=== PATIENT | male | born 1965 ===

== ENCOUNTER 2024-12-07 08:59 | Emergency (ER) | payer BC ==
[2024-12-07 09:52] LABS: BASOPHILS PERCENT AUTO 0.4 % (0.0-1.0); EOSINOPHILS PERCENT AUTO 0.4 % (0.0-6.0); HEMATOCRIT 41.2 % (42.0-52.0); HEMOGLOBIN 14.3 gm/dl (14.0-18.0); IMMATURE GRAN ABSOLUTE AUTO 0.03 K/mm3 (0.00-0.05); IMMATURE GRAN PERCENT AUTO 0.4 % (0.0-0.4); LYMPHOCYTES ABSOLUTE AUTO 0.9 K/mm3 (1.0-4.8); LYMPHOCYTES PERCENT AUTO 12.3 % (24.0-44.0); MEAN CORPUSCULAR HEMOGLOBIN 30.3 pg (28.0-32.0); MEAN CORPUSCULAR HGB CONC 34.7 g/dl (32.0-36.0); MEAN CORPUSCULAR VOLUME 87.3 fl (83.0-99.0); MEAN PLATELET VOLUME 10.5 fl (9.4-12.4); MONOCYTES ABSOLUTE AUTO 0.7 K/mm3 (0.0-0.8); MONOCYTES PERCENT AUTO 9.8 % (0.0-8.0); NEUTROPHILS ABSOLUTE AUTO 5.7 K/mm3 (1.8-7.7); NEUTROPHILS PERCENT AUTO 76.7 % (41.0-71.0); PLATELET COUNT,PLT 160 K/mm3 (150-400); RED BLOOD CELL COUNT 4.72 M/mm3 (4.52-5.90); WHITE BLOOD CELL COUNT,WBC 7.37 K/mm3 (3.9-11.3)
[2024-12-07] MEDS: Sodium Chloride 0.9% 1,000 ML IV ONE (10:27)
[2024-12-07 10:30] LABS: ALBUMIN 3.4 g/dl (3.4-5.0); ANION GAP 14.2 (5-15); BILIRUBIN TOTAL 0.7 mg/dL (0.2-1.0); BUN/CREATININE RATIO 11.8 (14-18); CALCIUM 8.8 mg/dL (8.5-10.1); CREATININE 1.1 mg/dL (0.7-1.3); EST CRCL DRUG DOSING (CG) 70.52 mL/min; LACTIC ACID 0.8 mmol/L (0.4-2.0); MAGNESIUM 1.7 mg/dL (1.8-2.4); POTASSIUM,K 3.2 mEq/L (3.5-5.1); PROTEIN TOTAL,TP 6.8 g/dl (6.4-8.2)
[2024-12-07] MEDS: Acetaminophen 325 MG Tab PO ONE (11:46)
[2024-12-07] MEDS: Magnesium Sulfate/Water Premix 2 GM in Premix Bag 1 BAG IV ONE (11:47)
[2024-12-07] MEDS: Potassium Chloride 20 MEQ Tab.ER PO ONE (11:53)
[2024-12-07 15:16] LABS: ANION GAP 13.8 (5-15); CALCIUM 8.4 mg/dL (8.5-10.1); CREATININE 1.1 mg/dL (0.7-1.3); EST CRCL DRUG DOSING (CG) 70.52 mL/min; MAGNESIUM 2.1 mg/dL (1.8-2.4); POTASSIUM,K 3.8 mEq/L (3.5-5.1)
== END 2024-12-07 16:44 | disposition home or self-care (01) ==
LOC: JD.ED 08:59
DX: U07.1 COVID-19 (principal); E11.9 Type 2 diabetes mellitus without complications; Z79.84 Long term (current) use of oral hypoglycemic drugs; Z79.899 Other long term (current) drug therapy
CPT/HCPCS: 36415; 71045; 80048; 80053; 83605; 83735; 83880; 84484; 85025; 85379; 87428; 96361; 96365; 96366; 99285; A9270; J3475; J7030

== ENCOUNTER 2025-05-18 08:05 | Day surgery (SDC) | payer BC ==
[~2025-05-18 08:05] MED LIST: Sodium Chloride 0.9% 10 ML Syringe FLUSH PRN; Sodium Chloride 0.9% 10 ML Syringe FLUSH SCH
[2025-05-18] MEDS: Lactated Ringers 1,000 ML IV SCH (08:35)
[2025-05-18] MEDS ORDERED: Propofol 200 MG/20 ML SDV ONE ×2 (10:00→10:18)
[2025-05-18] MEDS ORDERED: Lactated Ringers 1,000 ML ONE (10:22)
== END 2025-05-18 11:35 | disposition home or self-care (01) ==
LOC: JD.SDS 08:05
PROVIDERS: ATTEND Surgery
DX: K62.5 Hemorrhage of anus and rectum (principal); I10 Essential (primary) hypertension; E11.9 Type 2 diabetes mellitus without complications; Z86.16 Personal history of COVID-19; Z79.899 Other long term (current) drug therapy
CPT/HCPCS: 45378; J2003; J2704; J7120; 00811